=== PATIENT | female | born 1955 | race Caucasian/White ===

== ENCOUNTER 2016-04-23 15:02 | Observation (INO) | payer OTHER ==
[~2016-04-23] VITALS: Ht 175.3 cm; Wt 91.5 kg
[~2016-04-23 15:02] MED LIST: ACETAMINOPHEN-1 EAC1 PO; ADULT LOW DOSE81 M1 PO; ADVAIR 250/501 DISK IH; AMITIZA24 MICROGR PO; ASPIRIN81 M1 PO; CALCIUM + VITA1 EACH PO; CALCIUM 1,2001 EACH PO; CEFDINIR300 MG PO; CLONAZEPAM1 MG PO; COMBIVENT RESPIM4 GM IH; CYANOCOBALAM1000 MCG PO; CYCLOBENZAPRINE10 MG PO; Chronulac,Cephulac,E PO; DILAUDID4 MG PO; DOXYCYCLINE HY100 MG PO; EXALGO12 MG PO; EXALGO16 MG PO; EXALGO8 MG PO; Ecotrin PO; FENOFIBRATE160 M1 PO; FENOFIBRATE54 M1 PO; FIBER DIET1 EACH PO; FISH OIL 1,0001 EAC9 PO; FISH OIL SOFTG1 EACH PO; FLEXERIL10 MG PO; FOLIC ACID1 MG PO; Folvite PO; GAS RELIEF80 M1 PO; GLUCOPHAGE500 MG PO; GLUCOSAMINE &1 EAC1 PO; HYCODAN SYRUP480 ML PO; HYDROMORPHONE HC4 MG PO; IMDUR60 MG PO; ISORDIL40 MG PO; ISOSORBIDE MONO60 MG PO; KLONOPIN0.5 M1 PO; KLONOPIN1 MG PO; KRISTALOSE10 GM PO; KlonoPIN PO; LEVAQUIN500 MG PO; LEVAQUIN750 MG PO; LISINOPRIL2.5 MG PO; LO-DOSE ASPIRIN81 M1 PO; LOPRESSOR12.5 MG PO; Lopressor PO; MEDROL DOSEPAK4 MG PO; METFORMIN HCL1000 MG PO; METFORMIN HCL500 MG PO; METOPROLOL SUCC25 MG PO; METOPROLOL TART25 MG PO; MORPHINE SULFAT15 M1 PO; MORPHINE SULFAT15 MG PO; MS Contin,Oramorph S PO; NEURONTIN300 MG PO; NICOTINE PATCH1 EAC2 TD; NITROSTAT,NITR0.4 M1 SL; NITROSTAT0.4 MG SL; Neurontin PO; OMEPRAZOLE20 MG PO; OPANA ER15 MG PO; OPANA ER20 MG PO; OSTEO-BIFLE1 CAPSULE PO; OXYCODONE5 MG PO; OXYMORPHONE HCL20 MG PO; POLYETHYLENE GLY1 GM MC; PRAVACHOL40 MG PO; PRAVASTATIN SOD20 MG PO; PRAVASTATIN SOD40 MG PO; PREDNISONE10 MG PO; PREDNISONE20 MG PO; PROAIR HFA8.5 GM IH; QUETIAPINE FUM100 MG PO; RANITIDINE HCL150 M1 PO; RANITIDINE HCL150 MG PO; REQUIP0.5 MG PO; REQUIP3 MG PO; ROBITUSSIN AC,T10 ML PO; ROBITUSSIN DM118 ML PO; ROPINIROLE HCL0.5 MG PO; ROPINIROLE HCL2 MG PO; ROPINIROLE HCL4 MG PO; Requip PO; SEROQUEL100 MG PO; SEROQUEL50 MG PO; SEROquel PO; SPIRIVA1 INHALATI IH; STRATTERA60 MG PO; TESSALON PERLE100 MG PO; TIZANIDINE HCL4 MG PO; TOPAMAX100 MG PO; TOPIRAMATE100 MG PO; TOPIRAMATE50 MG PO; TOPROL XL25 MG PO; TOPROL XL6.25 MG PO; Topamax PO; VALIUM5 MG PO; VIIBRYD20 MG PO; VIIBRYD40 MG PO; ZESTRIL2.5 MG PO; ZITHROMAX250 MG PO; oxyCODONE PO
[2016-04-23 16:03] LABS: EOSINOPHIL (%) 1.8 % (0-5); EOSINOPHIL COUNT 0.2 K/uL (0-0.3); HEMATOCRIT 45.8 % (36.0-46.0); IMMATURE GRANULOCYTE (%) 0.5 % (0.0-0.7); INSTRUMENT ABS NEUTROPHIL CT 5.3 K/uL; LYMPHOCYTE COUNT 2.6 K/uL (1.0-2.8); MCH 27.9 PG (29.0-34.0); MCHC 31.7 G/DL (30.0-36.0); MCV 88.2 FL (83-99); MEAN PLAT.VOLUME 10.7 uM^3 (9.5-12.4); MONOCYTE (%) 6.8 % (3-12); MONOCYTE COUNT 0.6 K/uL (0-0.8); NEUTROPHIL (%) 60.4 % (45-76); NEUTROPHIL COUNT 5.3 K/uL (1.8-6.4); PLATELET COUNT 230 K/uL (156-360); RBC DIS.WIDTH-CV 12.7 % (11.8-14.6); RBC DIS.WIDTH-SD 41.1 % (39-53); RED BLOOD COUNT 5.19 M/uL (3.80-5.20); WHITE BLOOD COUNT 8.7 K/uL (4.1-10.2)
[2016-04-23 16:12] LABS: CHLORIDE 114 mEq/L (99-109); POTASSIUM 4.1 mEq/L (3.7-5.4); SODIUM 143 mEq/L (136-147)
[2016-04-23 16:14] LABS: GLUCOSE 86 mg/dL (70-99)
[2016-04-23 16:15] LABS: ANION GAP 10 MEQ/L (2-14)
[2016-04-23 16:16] LABS: TOTAL BILIRUBIN 0.3 mg/dL (0.0-1.0)
[2016-04-23 16:17] LABS: ALKALINE PHOSPHATASE 99 IU/L (3-129)
[2016-04-23 16:18] LABS: GFR ESTIMATE (CALCULATED) > 59 mL/min/
[2016-04-23 16:19] LABS: UREA NITROGEN (BUN) 12 mg/dL (9-23)
[2016-04-23 16:21] LABS: LIPASE 24 U/L (1.0-51.0)
[2016-04-23 16:42] LABS: TROP-I INTERPRETATION NEGATIVE; TROPONIN-I < 0.01 ng/mL (0.0-0.30)
[2016-04-23 16:43] LABS: ADD MIUA? YES; BILIRUBIN NEGATIVE; BLOOD NEGATIVE; COLOR YELLOW ((YELLOW)); GLUCOSE (STRIP) NEGATIVE; KETONES NEGATIVE; LEUKOCYTES NEGATIVE; NITRITE NEGATIVE; PROTEIN (STRIP) NEGATIVE; SPECIFIC GRAVITY 1.023 (1.000-1.030); UROBILINOGEN 0.2 MG/DL (0.2-1.0)
[2016-04-23 17:25] LABS: BACTERIA NONE SEEN /HPF; CALCIUM OXALATE CRYSTALS 3+ /HPF; EPITHELIAL CELLS RARE /HPF; MUCUS TRACE /LPF; RED BLOOD CELLS 0-5 /HPF (0-5); WHITE BLOOD CELLS 0-5 /HPF (0-5)
[2016-04-23] MEDS ORDERED: METFORMIN HCL1000 MG PO (18:18)
[2016-04-23] MEDS ORDERED: OPANA ER15 MG PO (18:19)
[2016-04-23] MEDS ORDERED: ADVAIR 250/501 DISK IH (18:20)
[2016-04-23] MEDS ORDERED: SPIRIVA1 INHALATI IH (18:20)
[2016-04-23] MEDS ORDERED: ASPIR 8181 M1 PO (18:21)
[2016-04-23] MEDS ORDERED: JANUVIA100 MG PO (18:22)
[2016-04-23] MEDS ORDERED: PROAIR HFA8.5 GM IH (18:22)
[2016-04-23] MEDS ORDERED: BUSPAR10 MG PO (18:23)
[2016-04-23] MEDS ORDERED: PROVENTIL,2.5 MG/3 M IH (18:23)
[2016-04-23 21:18] LABS: TROP-I INTERPRETATION NEGATIVE; TROPONIN-I < 0.01 ng/mL (0.0-0.30)
[2016-04-23 22:22] VITALS: BP 119/66
[2016-04-24] VITALS: BP 96/56
[2016-04-24 03:26] LABS: TROP-I INTERPRETATION NEGATIVE; TROPONIN-I < 0.01 ng/mL (0.0-0.30)
[2016-04-24 05:00] VITALS: BP 97/57
[2016-04-24 07:24] VITALS: BP 100/58
[2016-04-24] MEDS ORDERED: IMDUR60 MG PO (11:20)
[2016-04-24] MEDS ORDERED: PROTONIX40 MG PO (11:21)
== END 2016-04-24 12:11 | disposition home or self-care (01) ==
LOC: EME 15:02 → EDOF 20:24 → 5WEST 21:07
PROVIDERS: Physician Assistant
DX: R07.89 Other chest pain (principal); R10.13 Epigastric pain; I10 Essential (primary) hypertension; E11.9 Type 2 diabetes mellitus without complications; I25.10 Atherosclerotic heart disease of native coronary artery without angina pectoris; F32.9 Major depressive disorder, single episode, unspecified; M54.9 Dorsalgia, unspecified
CPT/HCPCS: 71020; 74176; 80053; 81003; 83605; 83690; 84484; 85025; 93005; 99281; 99285; G0378; J0500; J1650; J1885; J2405; J3010; J7030

== ENCOUNTER 2016-08-10 14:39 | Emergency (ER) | payer OTHER ==
[~2016-08-10] VITALS: Ht 175.3 cm; Wt 91.0 kg
[~2016-08-10 14:39] MED LIST changes: +ASPIR 8181 M1 PO; +BUSPAR10 MG PO; +JANUVIA100 MG PO; +PROTONIX40 MG PO; +PROVENTIL,2.5 MG/3 M IH
[2016-08-10] MEDS ORDERED: SEROQUEL XR150 MG PO (16:47)
[2016-08-10] MEDS ORDERED: GLUCOPHAGE XR750 MG PO (16:47)
[2016-08-10 16:48] LABS: HEMATOCRIT 43.1 % (36.0-46.0); MCH 28.5 PG (29.0-34.0); MCHC 31.8 G/DL (30.0-36.0); MCV 89.8 FL (83-99); MEAN PLAT.VOLUME 10.3 uM^3 (9.5-12.4); PLATELET COUNT 229 K/uL (156-360); RBC DIS.WIDTH-CV 13.2 % (11.8-14.6); RBC DIS.WIDTH-SD 43.9 % (39-53); WHITE BLOOD COUNT 7.8 K/uL (4.1-10.2)
[2016-08-10 16:56] LABS: CHLORIDE 106 mEq/L (99-109); POTASSIUM 4.6 mEq/L (3.7-5.4); SODIUM 140 mEq/L (136-147)
[2016-08-10 16:58] LABS: GLUCOSE 153 mg/dL (70-99)
[2016-08-10 16:59] LABS: ANION GAP 7 MEQ/L (2-14); INTER. NORMALIZED RATIO 0.9; PTT 26.4 (25-32)
[2016-08-10 17:01] LABS: PROTHROMBIN TIME 9.4 (9.2-11.2)
[2016-08-10 17:02] LABS: GFR ESTIMATE (CALCULATED) > 59 mL/min/; UREA NITROGEN (BUN) 16 mg/dL (9-23)
[2016-08-10 17:10] LABS: TROP-I INTERPRETATION NEGATIVE; TROPONIN-I < 0.01 ng/mL (0.0-0.30)
[2016-08-10 19:00] LABS: TROP-I INTERPRETATION NEGATIVE; TROPONIN-I < 0.01 ng/mL (0.0-0.30)
[2016-08-10 19:23] VITALS: BP 119/76
== END 2016-08-10 19:20 | disposition home or self-care (01) ==
LOC: EME 14:39
PROVIDERS: Emergency Medicine
DX: M79.602 Pain in left arm (principal); R51 Headache; I10 Essential (primary) hypertension; E78.5 Hyperlipidemia, unspecified; K21.9 Gastro-esophageal reflux disease without esophagitis; I25.10 Atherosclerotic heart disease of native coronary artery without angina pectoris; Z87.442 Personal history of urinary calculi; Z85.42 Personal history of malignant neoplasm of other parts of uterus; Z79.82 Long term (current) use of aspirin; F17.200 Nicotine dependence, unspecified, uncomplicated
CPT/HCPCS: 70450; 80048; 84484; 85027; 85610; 85730; 93005; 99281; 99284; J3010

== ENCOUNTER 2016-11-10 11:08 | Emergency (ER) | payer OTHER ==
[~2016-11-10] VITALS: Ht 175.3 cm; Wt 93.0 kg
[~2016-11-10 11:08] MED LIST changes: +GLUCOPHAGE XR750 MG PO; +SEROQUEL XR150 MG PO
[2016-11-10 11:28] LABS: HEMATOCRIT 44.6 % (36.0-46.0); MCH 28.4 PG (29.0-34.0); MCHC 31.6 G/DL (30.0-36.0); MCV 89.7 FL (83-99); MEAN PLAT.VOLUME 10.6 uM^3 (9.5-12.4); PLATELET COUNT 198 K/uL (156-360); RBC DIS.WIDTH-CV 13.2 % (11.8-14.6); RBC DIS.WIDTH-SD 43.2 % (39-53); RED BLOOD COUNT 4.97 M/uL (3.80-5.20); WHITE BLOOD COUNT 8.2 K/uL (4.1-10.2)
[2016-11-10 11:34] LABS: CHLORIDE 111 mEq/L (99-109); POTASSIUM 4.1 mEq/L (3.7-5.4); SODIUM 142 mEq/L (136-147)
[2016-11-10 11:36] LABS: GLUCOSE 106 mg/dL (70-99)
[2016-11-10 11:37] LABS: ANION GAP 11 MEQ/L (2-14)
[2016-11-10 11:40] LABS: GFR ESTIMATE (CALCULATED) > 59 mL/min/
[2016-11-10 11:41] LABS: UREA NITROGEN (BUN) 13 mg/dL (9-23)
[2016-11-10 12:47] LABS: ADD MIUA? YES; BILIRUBIN NEGATIVE; BLOOD NEGATIVE; COLOR YELLOW ((YELLOW)); GLUCOSE (STRIP) NEGATIVE; KETONES 5; LEUKOCYTES TRACE; NITRITE NEGATIVE; PROTEIN (STRIP) NEGATIVE; SPECIFIC GRAVITY 1.027 (1.000-1.030)
[2016-11-10 12:56] LABS: AMPHETAMINE NEGATIVE (500 ng/mL); BACTERIA RARE /HPF; BARBITURATES NEGATIVE (200 ng/mL); BENZODIAZEPINES NEGATIVE (150 ng/mL); COCAINE NEGATIVE (150 ng/mL); EPITHELIAL CELLS RARE /HPF; INTERNAL CONTROLS VALID? YES; METHADONE NEGATIVE (200 ng/mL); METHAMPHETAMINE NEGATIVE (500 ng/mL); MUCUS TRACE /LPF; OPIATES (MORPHINE) PRESUMPTIVE POSITIVE (100 ng/mL); OXYCODONE PRESUMPTIVE POSITIVE (100 ng/mL); PHENCYCLIDINE NEGATIVE (25 ng/mL); PROPOXYPHENE NEGATIVE (300 ng/mL); RED BLOOD CELLS 0-5 /HPF (0-5); THC CANNABINOIDS NEGATIVE (50 ng/mL); TRICYCLIC ANTIDEPRESSANTS PRESUMPTIVE POSITIVE (300 ng/mL); UCUL ADDED? YES
[2016-11-10 12:57] LABS: ADD MEDTOX COMMENT Y
[2016-11-10] MEDS ORDERED: KEFLEX500 MG PO (13:52)
[2016-11-10] MEDS ORDERED: TORADOL10 MG PO (13:52)
[2016-11-10 14:32] VITALS: BP 95/56
== END 2016-11-10 14:32 | disposition home or self-care (01) ==
LOC: EME 11:08
PROVIDERS: Nurse Practitioner Family
DX: M54.5 Low back pain (principal); E78.5 Hyperlipidemia, unspecified; I10 Essential (primary) hypertension; K21.9 Gastro-esophageal reflux disease without esophagitis; F17.200 Nicotine dependence, unspecified, uncomplicated; Z87.442 Personal history of urinary calculi; Z85.42 Personal history of malignant neoplasm of other parts of uterus; Z90.710 Acquired absence of both cervix and uterus
CPT/HCPCS: 72100; 80048; 81003; 84999; 85027; 87086; 99281; 99284; J1885

== ENCOUNTER 2016-11-12 14:35 | Emergency (ER) | payer OTHER ==
[~2016-11-12] VITALS: Ht 175.3 cm; Wt 94.2 kg
[~2016-11-12 14:35] MED LIST changes: +KEFLEX500 MG PO; +TORADOL10 MG PO
[2016-11-12 15:36] LABS: HEMATOCRIT 42.6 % (36.0-46.0); MCH 28.4 PG (29.0-34.0); MCHC 31.7 G/DL (30.0-36.0); MCV 89.7 FL (83-99); MEAN PLAT.VOLUME 10.7 uM^3 (9.5-12.4); PLATELET COUNT 212 K/uL (156-360); RBC DIS.WIDTH-CV 13.2 % (11.8-14.6); RBC DIS.WIDTH-SD 43.5 % (39-53); RED BLOOD COUNT 4.75 M/uL (3.80-5.20); WHITE BLOOD COUNT 7.8 K/uL (4.1-10.2)
[2016-11-12 15:42] LABS: CHLORIDE 110 mEq/L (99-109); POTASSIUM 4.3 mEq/L (3.7-5.4); SODIUM 141 mEq/L (136-147)
[2016-11-12 15:43] LABS: GLUCOSE 109 mg/dL (70-99)
[2016-11-12 15:45] LABS: ANION GAP 12 MEQ/L (2-14)
[2016-11-12 15:47] LABS: GFR ESTIMATE (CALCULATED) 54 mL/min/
[2016-11-12 15:48] LABS: UREA NITROGEN (BUN) 17 mg/dL (9-23)
[2016-11-12 17:01] LABS: ADD MIUA? NO; BILIRUBIN NEGATIVE; BLOOD NEGATIVE; COLOR YELLOW ((YELLOW)); GLUCOSE (STRIP) NEGATIVE; KETONES NEGATIVE; LEUKOCYTES NEGATIVE; NITRITE NEGATIVE; PROTEIN (STRIP) NEGATIVE; SPECIFIC GRAVITY 1.024 (1.000-1.030); UROBILINOGEN 0.2 MG/DL (0.2-1.0)
[2016-11-12] MEDS ORDERED: NAPROSYN500 MG PO (17:34)
[2016-11-12 17:50] LABS: UCUL ADDED? NO
[2016-11-12 18:14] VITALS: BP 139/70
== END 2016-11-12 18:22 | disposition home or self-care (01) ==
LOC: EME 14:35
DX: R10.30 Lower abdominal pain, unspecified (principal); R60.0 Localized edema; M54.9 Dorsalgia, unspecified; G89.29 Other chronic pain; Z91.81 History of falling; N39.0 Urinary tract infection, site not specified; K21.9 Gastro-esophageal reflux disease without esophagitis; J45.909 Unspecified asthma, uncomplicated; I25.10 Atherosclerotic heart disease of native coronary artery without angina pectoris; E78.5 Hyperlipidemia, unspecified; I10 Essential (primary) hypertension; F41.9 Anxiety disorder, unspecified; F32.9 Major depressive disorder, single episode, unspecified; Z87.442 Personal history of urinary calculi; Z85.42 Personal history of malignant neoplasm of other parts of uterus; Z79.82 Long term (current) use of aspirin; Z79.84 Long term (current) use of oral hypoglycemic drugs; F17.200 Nicotine dependence, unspecified, uncomplicated
CPT/HCPCS: 80048; 81003; 85027; 99281; 99284; J1885

== ENCOUNTER 2017-10-04 13:44 | Emergency (ER) | payer OTHER ==
[~2017-10-04] VITALS: Ht 175.3 cm; Wt 93.7 kg
[~2017-10-04 13:44] MED LIST changes: +NAPROSYN500 MG PO
[2017-10-04 15:02] LABS: HEMATOCRIT 42.8 % (36.0-46.0); HEMOGLOBIN 13.8 G/DL (11.9-15.5); MCH 28.8 PG (29.0-34.0); MCHC 32.2 G/DL (30.0-36.0); MCV 89.2 FL (83-99); PLATELET COUNT 246 K/uL (156-360); RBC DIS.WIDTH-CV 13.2 % (11.8-14.6); RBC DIS.WIDTH-SD 42.7 % (39-53); WHITE BLOOD COUNT 10.3 K/uL (4.1-10.2)
[2017-10-04 15:15] LABS: ALBUMIN 4.2 g/dL (3.2-4.8); CHLORIDE 109 mEq/L (99-109); POTASSIUM 4.6 mEq/L (3.7-5.4); SODIUM 141 mEq/L (136-147)
[2017-10-04 15:18] LABS: GLUCOSE 205 mg/dL (70-99); TOTAL PROTEIN 7.3 g/dL (6.4-8.3)
[2017-10-04 15:20] LABS: TOTAL BILIRUBIN 0.3 mg/dL (0.0-1.0)
[2017-10-04 15:21] LABS: ALKALINE PHOSPHATASE 129 IU/L (3-129); CREATININE 1.1 mg/dL (0.6-1.3); GFR ESTIMATE (CALCULATED) 54 mL/min/
[2017-10-04 15:22] LABS: UREA NITROGEN (BUN) 20 mg/dL (9-23)
[2017-10-04 15:23] LABS: AST (GOT) 43 IU/L (2-34)
[2017-10-04 15:24] LABS: ALT (GPT) 67 IU/L (3-49)
[2017-10-04] MEDS ORDERED: MORPHABOND ER15 MG PO (15:49)
[2017-10-04] MEDS ORDERED: BENTYL20 MG PO (17:06)
[2017-10-04 17:43] VITALS: BP 100/69
== END 2017-10-04 17:43 | disposition home or self-care (01) ==
LOC: EME 13:44
PROVIDERS: Physician Assistant
DX: R10.12 Left upper quadrant pain (principal); I10 Essential (primary) hypertension; E78.5 Hyperlipidemia, unspecified; Z90.49 Acquired absence of other specified parts of digestive tract; F32.9 Major depressive disorder, single episode, unspecified; F41.9 Anxiety disorder, unspecified; K21.9 Gastro-esophageal reflux disease without esophagitis; Z85.42 Personal history of malignant neoplasm of other parts of uterus; G89.29 Other chronic pain; Z87.442 Personal history of urinary calculi; I25.10 Atherosclerotic heart disease of native coronary artery without angina pectoris; J45.909 Unspecified asthma, uncomplicated; Z86.69 Personal history of other diseases of the nervous system and sense organs; F17.200 Nicotine dependence, unspecified, uncomplicated; Z88.8 Allergy status to other drugs, medicaments and biological substances
CPT/HCPCS: 74176; 80053; 85027; 99281; 99284; J7030